=== PATIENT | male | born 1940 | race Caucasian/White ===

== ENCOUNTER 2018-06-24 10:42 | Inpatient (IN) ==
[2018-06-24] MEDS ORDERED: NITROGLYCERIN SL 0.4 MG TABLET SL PRN ×3 (11:08→17:15)
[2018-06-24] MEDS ORDERED: ASPIRIN 325 MG TABLET PO STA (11:08)
[2018-06-24 11:24] LABS: Basophils % 0.5 % (0.0-0.8); Eosinophils # 0.2 10*3/uL (0.0-0.87); Eosinophils % 2.4 % (0.00-10.9); Hematocrit 41.4 VOL% (42.0-52.0); Hemoglobin 13.8 GM/DL (14.0-18.0); Immature Granulocytes % 0.6 %; Immature Granulocytes Absolute 0.05 #; Lymphocytes # 1.6 10*3/uL (1.4-4.0); Lymphocytes % 20.5 % (21.2-54.2); Mean Corpuscular HGB Conc 33.3 GM/DL (32-36); Mean Corpuscular Hemoglobin 29 PG (27-34); Mean Corpuscular Volume 88.3 FL (87-102); Mean Platelet Volume 10.7 FL (9.6-12.0); Monocytes # 0.6 10*3/uL (0.11-0.8); Monocytes % 7.3 % (1.7-12.7); Neutrophils # 5.4 10*3/uL (1.4-7.4); Neutrophils % 68.7 % (38.7-73.9); Platelet Count 199 T/CUMM (130-400); Red Blood Count 4.69 MC/CUMM (3.8-5.5); Red Cell Distribution Width 12.8 % (9.3-17.3); White Blood Count 7.9 T/CUMM (4-12)
[2018-06-24 11:47] LABS: Calcium 8.5 MG/DL (8.5-10.1); Osmolality,Calculated 276.5 MOS/KG (273-304); Potassium 3.9 MMOL/L (3.5-5.1)
[2018-06-24] MEDS ORDERED: MAGNESIUM SULF RIDER 2 GM in PREMIX 1 EACH IV PRN ×3 (12:55→17:54)
[2018-06-24] MEDS ORDERED: POTASSIUM CHLORIDE 20 MEQ TABLET PO PRN ×2 (12:55→17:34)
[2018-06-24] MEDS ORDERED: MAGNESIUM SULF RIDER 4 GM in PREMIX 1 EACH IV PRN (12:55)
[2018-06-24] MEDS ORDERED: SODIUM CHLORIDE 0.45% 1,000 ML IV SCH (13:00)
[2018-06-24] MEDS: ENOXAPARIN 80 MG/0.8 ML SYRINGE SUBCUT SCH (16:11)
[2018-06-24] MEDS ORDERED: oxyCODONE/ACETAMINOPHEN 5-325 MG TABLET PO SCH (18:00)
[2018-06-24] MEDS: NITROGLYCERIN 2% OINT 1 INCH/GM PACK TOP SCH ×2 (18:19→23:59)
[2018-06-24] MEDS: TAMSULOSIN 0.4 MG CAPSULE PO SCH (20:36)
[2018-06-24] MEDS: CYCLOBENZAPRINE 10 MG TABLET PO SCH (20:36)
[2018-06-24] MEDS: METOPROLOL TARTRATE 25 MG TABLET PO SCH (20:37)
[2018-06-24] MEDS ORDERED: ASPIRIN EC 81 MG TABLET PO SCH (21:00)
[2018-06-24] MEDS ORDERED: VENLAFAXINE XR 75 MG CAPSULE PO SCH (21:00)
[2018-06-24] MEDS ORDERED: ATORVASTATIN 80 MG TABLET PO SCH (21:00)
[2018-06-24] MEDS ORDERED: LOSARTAN 25 MG TABLET PO SCH (21:00)
[2018-06-24] MEDS: oxyCODONE/ACETAMINOPHEN 5-325 MG TABLET PO PRN (21:28)
[2018-06-25 01:44] LABS: Basophils % 0.5 % (0.0-0.8); Eosinophils # 0.2 10*3/uL (0.0-0.87); Eosinophils % 3.2 % (0.00-10.9); Hemoglobin 12.1 GM/DL (14.0-18.0); Immature Granulocytes % 0.3 %; Immature Granulocytes Absolute 0.02 #; Lymphocytes # 2.2 10*3/uL (1.4-4.0); Lymphocytes % 34.2 % (21.2-54.2); Mean Corpuscular HGB Conc 32.7 GM/DL (32-36); Mean Corpuscular Hemoglobin 29 PG (27-34); Mean Corpuscular Volume 89.8 FL (87-102); Mean Platelet Volume 10.8 FL (9.6-12.0); Monocytes # 0.6 10*3/uL (0.11-0.8); Monocytes % 9.3 % (1.7-12.7); Neutrophils # 3.4 10*3/uL (1.4-7.4); Neutrophils % 52.5 % (38.7-73.9); Platelet Count 167 T/CUMM (130-400); Red Blood Count 4.12 MC/CUMM (3.8-5.5); Red Cell Distribution Width 12.9 % (9.3-17.3); White Blood Count 6.6 T/CUMM (4-12)
[2018-06-25 02:03] LABS: Calcium 7.8 MG/DL (8.5-10.1); Osmolality,Calculated 279.4 MOS/KG (273-304); Potassium 3.6 MMOL/L (3.5-5.1)
[2018-06-25 02:05] LABS: Risk Ratio 1.9; VLDL CHOLESTEROL 23.8 MG/DL
[2018-06-25] MEDS: ENOXAPARIN 80 MG/0.8 ML SYRINGE SUBCUT SCH (02:48)
[2018-06-25] MEDS: SODIUM CHLORIDE 0.9% 1,000 ML IV SCH ×2 (03:47→16:36)
[2018-06-25] MEDS: NITROGLYCERIN 2% OINT 1 INCH/GM PACK TOP SCH (06:39)
[2018-06-25] MEDS ORDERED: diphenhydrAMINE CAP 25 MG CAPSULE PO ONE (07:09)
[2018-06-25] MEDS ORDERED: MAGNESIUM SULF RIDER 2 GM in PREMIX 1 EACH IV PRN (07:09)
[2018-06-25] MEDS ORDERED: POTASSIUM CHLORIDE RIDER 10 MEQ in PREMIX 1 EACH IV PRN (07:09)
[2018-06-25] MEDS ORDERED: DIAZEPAM 5 MG TABLET PO ONE (07:09)
[2018-06-25] MEDS ORDERED: LIDOCAINE 1% 20 ML VIAL ONE (08:41)
[2018-06-25] MEDS ORDERED: HEPARIN/NACL 0.9% 2 UNITS/ML 1,000 ML IV ONE (08:41)
[2018-06-25] MEDS ORDERED: CLOPIDOGREL 75 MG TABLET PO SCH (09:00)
[2018-06-25] MEDS ORDERED: PANTOPRAZOLE 40 MG TABLET PO SCH (09:00)
[2018-06-25] MEDS ORDERED: ISOSORBIDE DINITRATE 10 MG TABLET PO SCH (09:00)
[2018-06-25] MEDS ORDERED: FUROSEMIDE 40 MG TABLET PO SCH (09:00)
[2018-06-25] MEDS ORDERED: fentaNYL 100 MCG/2 ML VIAL ONE (09:09)
[2018-06-25] MEDS ORDERED: MIDAZOLAM 2 MG/2 ML VIAL ONE ×2 (09:09→09:20)
[2018-06-25] MEDS ORDERED: ACETAMINOPHEN 325 MG TABLET PO PRN (09:48)
[2018-06-25] MEDS ORDERED: RANOLAZINE 500 MG TABLET PO SCH (10:00)
[2018-06-25] MEDS ORDERED: amLODIPine 5 MG TABLET PO SCH (10:00)
[2018-06-25] MEDS ORDERED: amLODIPine 2.5 MG TABLET PO SCH (10:00)
[2018-06-25] MEDS: oxyCODONE/ACETAMINOPHEN 5-325 MG TABLET PO PRN (11:54)
[2018-06-25] MEDS: TAMSULOSIN 0.4 MG CAPSULE PO SCH (11:56)
[2018-06-25] MEDS: CYCLOBENZAPRINE 10 MG TABLET PO SCH ×2 (11:56→16:36)
[2018-06-25] MEDS: METOPROLOL TARTRATE 25 MG TABLET PO SCH (11:57)
[2018-06-25 15:42] VITALS: BP 109/65
== END 2018-06-25 17:00 | disposition home or self-care (01) | DRG 281 ==
LOC: N.ED 10:42 → N.EDINP 12:55 → N.TELEN 13:17
PROVIDERS: ADMIT Internal Medicine Clinical Cardiac Electrophysiology; ATTEND Internal Medicine Clinical Cardiac Electrophysiology